=== PATIENT | female | born 1965 | race Caucasian/White ===

== ENCOUNTER 2023-11-06 11:34 | Emergency (ER) | payer MEDICAID ==
[~2023-11-06] VITALS: Ht 172.7 cm; Wt 106.1 kg
[2023-11-06 11:44] VITALS: TEMP 97.6
[2023-11-06] MEDS ORDERED: morphine 2 MG/ML inj. syringe IV ONE (12:30)
[2023-11-06] MEDS: morphine 4 MG/ML inj SYRINge IV ONE (12:42)
[2023-11-06] MEDS: ketorolac trometh. 30mg/ml inj. IV ONE (12:42)
[2023-11-06] MEDS: ondansetron/PF 4mg/2ml inj IV ONE (12:42)
[2023-11-06] MEDS ORDERED: HYDR-3965 PO ×2 (13:12→16:10)
[2023-11-06 14:22] VITALS: BP 121/73; PULSE 66; RESP 19; O2SAT 100
== END 2023-11-06 14:24 | disposition home or self-care (01) ==
LOC: ER 11:35
DX: S82.292A Other fracture of shaft of left tibia, initial encounter for closed fracture (principal); Z79.899 Other long term (current) drug therapy; W18.39XA Other fall on same level, initial encounter; Y93.89 Activity, other specified; Y92.89 Other specified places as the place of occurrence of the external cause; Y99.8 Other external cause status
CPT/HCPCS: 29505; 73564; 73700; 96374; 96375; 99285; J1885; J2270; J2405; A6449